=== PATIENT | female | born 1950 | race Asian ===

== ENCOUNTER 2019-07-09 06:32 | Emergency (ER) | payer OTHER ==
[~2019-07-09] VITALS: Ht 152.4 cm; Wt 46.7 kg
[2019-07-09 06:39] VITALS: Ht 152.4 cm; Wt 46.7 kg
[2019-07-09 07:14] LABS: BASOPHIL % 0.3 % (0-2); PLATELET COUNT 333 x10^3mcL (130-400)
[2019-07-09 07:24] LABS: microscopic required? YES; urine erythrocyte 3+ (NEGATIVE)
[2019-07-09 07:30] LABS: CARBON DIOXIDE 29.8 mmol/L (21-32); CHLORIDE SERUM 104 mmol/L (98-107); CREATININE SERUM 0.7 mg/dL (0.6-1.0); GFR1 > 60 mL/min; GLUCOSE SERUM 125 mg/dL (74-106); POTASSIUM SERUM 3.9 mmol/L (3.5-5.1); SODIUM SERUM 139 mmol/L (136-145)
[2019-07-09 09:02] VITALS: BP 125/69
== END 2019-07-09 09:02 | disposition home or self-care (01) ==
LOC: ED 06:32
PROVIDERS: Emergency Medicine
DX: N39.0 Urinary tract infection, site not specified (principal); I10 Essential (primary) hypertension; E78.00 Pure hypercholesterolemia, unspecified
CPT/HCPCS: 36415; 99406; J0696

== ENCOUNTER 2019-12-11 22:58 | Emergency (ER) | payer OTHER ==
[~2019-12-11] VITALS: Ht 152.4 cm; Wt 47.2 kg
[2019-12-11 23:04] VITALS: BP 171/102; Ht 152.4 cm; Wt 47.2 kg
== END 2019-12-12 00:28 | disposition home or self-care (01) ==
LOC: ED 22:58
DX: N39.0 Urinary tract infection, site not specified (principal); I10 Essential (primary) hypertension

== ENCOUNTER 2020-07-31 18:19 | Emergency (ER) | payer OTHER ==
[~2020-07-31] VITALS: Ht 152.4 cm; Wt 48.1 kg
[2020-07-31 18:32] VITALS: Ht 152.4 cm; Wt 48.1 kg
[2020-07-31 19:45] LABS: PLATELET COUNT 352 x10^3mcL (179-408); RED CELL DISTRIBUTION WIDTH 13.2 % (12.3-17.7)
[2020-07-31 19:52] LABS: CALCIUM 9.9 mg/dL (8.5-10.1); CARBON DIOXIDE 29.8 mmol/L (21-32); CHLORIDE SERUM 102 mmol/L (98-107); CREATININE SERUM 0.9 mg/dL (0.6-1.0); GFR1 > 60 mL/min; GLUCOSE SERUM 106 mg/dL (74-106); SODIUM SERUM 140 mmol/L (136-145)
[2020-07-31 19:56] LABS: ALBUMIN 4.2 g/dL (3.4-5.0); ALKALINE PHOSPHATASE 73 U/L (46-116); ALT/SGPT 40 U/L (14-59); AST/SGOT 28 U/L (15-37); BILIRUBIN TOTAL 0.6 mg/dL (0.20-1.00); MAGNESIUM 2.4 mg/dL (1.8-2.4); PHOSPHOROUS 3.7 mg/dL (2.5-4.9); TOTAL PROTEIN, SERUM 7.6 g/dL (6.4-8.2)
[2020-07-31 22:40] VITALS: BP 147/82
== END 2020-07-31 22:40 | disposition home or self-care (01) ==
LOC: ED 18:19
PROVIDERS: Emergency Medicine
DX: H53.9 Unspecified visual disturbance (principal); R42 Dizziness and giddiness; I10 Essential (primary) hypertension
CPT/HCPCS: 82962; Q9967